=== PATIENT | female | born 2000 | race Caucasian/White ===

== ENCOUNTER 2023-08-03 10:44 | Emergency (ER) | payer OTHER, SELFPAY ==
--- NOTE | ~2023-08-03 | XR_ITS ---
EXAMINATION: XR CHEST 2 VIEW CLINICAL INFORMATION: Cough COMPARISON: None TECHNIQUE: PA and lateral views of the chest obtained. FINDINGS: The lungs are clear. There are no pleural effusions. The cardiomediastinal silhouette is normal. XR/XR chest 2V IMPRESSION: No acute cardiopulmonary disease.
[2023-08-03 11:33] VITALS: BP 127/79; PULSE 79; RESP 18; TEMP 37; O2SAT 98; BMI 38.1
--- NOTE | 2023-08-03 11:33 | ED_ITS ---
HPI - URI/Sore Throat General Chief Complaint: Upper Respiratory Symptoms Stated Complaint: Heavy Chest Cough Time Seen by Provider: 08/03/23 15:15 Source: patient Mode of arrival: ambulatory Limitations: no limitations History of Present Illness HPI Narrative: 22 year old female with no signficant pmhx presents to the ED today for evaluation of dry cough and sore throat x6 days. Admits to chest heaviness on coughing. Admits to fever 4 days ago which has resolved. Has been taking Nyquil and drinking tea without resolution. Admits to testing negative for COVID at home. Denies sick contacts. Denies headache, dizziness, ear pain, sputum production, dysphagia, odynophagia, N/V. Denies chest pain, palpitations, shortness of breath, leg swelling/pain, hemoptysis, recent surgery/Trauma, history of PE or DVT, or OCP use. Denies recent travel or long car rides. Related Data Previous Rx's Medication Instructions Recorded benzocaine 15 mg-menthol 2.6 mg 1 ravindra mucous membrane Q2-4H PRN 08/03/23 lozenges (Cepacol Sore Throat sore throat #16 ea (benzocaine-menthol)) benzonatate 100 mg capsule 100 mg PO BID PRN cough #10 caps 08/03/23 prednisone 20 mg tablet 20 mg PO DAILY 5 days #5 tabs 08/03/23 Allergies Allergy/AdvReac Type Severity Reaction Status Date / Time almond [ALMONDS] Allergy Unknown UNKNOWN Verified 08/03/23 11:36 any kind of nuts Allergy Unknown Unknown Uncoded 08/03/23 11:36 Seasonal Allergy Unknown Unknown Uncoded 08/03/23 11:36 Review of Systems Review of Systems: Constitutional: No fever, chills, fatigue, night sweats, weight changes ENT/Mouth: No ear pain, hearing loss, nasal congestion, sinus pain, rhinorrhea, +sore throat, No odynophagia, No dysphagia Eyes: No eye pain, swelling, redness, vision changes, discharge Cardio: No chest pain, palpitations, ALMANZA, orthopnea, peripheral edema Pulm: No SOB, +cough, No sputum, wheezing, dyspnea, hemoptysis GI: No nausea, vomiting, hematemesis, abdominal pain, diarrhea, constipation, hematochezia, melena : No irregular bleeding, dysuria, frequency, urgency, hesitancy, hematuria, flank pain MSK: No back pain, neck pain, joint pain, myalgias Skin: No lesions, rashes Neuro: No weakness, numbness, paresthesias, LOC, dizziness, headache All other systems reviewed and are negative. [facility] Past Medical History Attestation statement: The following information was validated with the patient. Source: old records reviewed and nursing notes reviewed Social History Social History Advance Directives: No Advance Directives Information Provided: No Physical Exam Vital Signs: Vital Signs: Last Vital Signs Temp 97.8 F 08/03/23 15:19 Pulse 78 08/03/23 15:19 Resp 18 08/03/23 15:19 BP 128/76 08/03/23 15:19 Pulse Ox 98 08/03/23 15:19 O2 Del Method Room Air 08/03/23 15:19 BMI result Body Mass Index 38.1 Vital signs stable, afebrile Const: General: cooperative, healthy appearing, comfortable, no acute distress, alert and awake Orientation/consciousness: patient oriented x3 Limitations: no limitations HEENT: Other: + posterior oropharynx erythematous, no edema. No tonsillar exudates. Uvula midline. Controlling secretions and speaking complete sentences. Head: Yes normal to inspection, Yes normocephalic and Yes atraumatic Ears: hearing grossly normal bilaterally, external ears normal, TM's normal bilaterally, EAC's normal, mastoids normal and no periauricular adenopathy General nose exam: Normal external nose present and No nasal discharge present Face and sinus: Yes normal facial exam and Yes sinuses nontender Eyes: General: appearance normal, both eyes and all related structures Conjunctivae: conjunctivae normal Sclerae: sclerae normal Pupils: Equal, round and reactive pupils present Neck: Neck: Yes normal visual inspection, Yes full ROM, Yes no lymphadenopathy and Yes no meningeal signs Resp: Effort & Inspection: normal respiratory effort and able to speak in complete sentences Auscultation: clear to auscultation bilaterally Cardio: Rate: regular rate Rhythm: regular rhythm GI: Inspection: Yes normal to inspection Palpation (GI): Soft to palpation and nontender Skin: General skin exam: no rashes or lesions noted Neuro: General: patient oriented x3, gait normal and no meningeal signs Cranial nerves: Yes Equal, round and reactive pupils present Extrem: General: Yes normal to inspection Course Course Course Narrative: This is a rapid medical exam. Deferred additional HPI, ROS, PE to primary provider. 22 yo female with no known medical history here with cough, sore throat, chest tightness. Negative covid testing at home. Will obtain testing for flu, covid testing, strep testing and CXR. VSS Reevaluation(s) Reevaluation #1: 1547-- patient has tested negative for COVID, flu, strep. Exam not consistent with mono. Chest x-ray without evidence of pneumonia or bronchitis. Patient receiving dose of Solu-Medrol in the ED. exam may be consistent with a laryngitis. I do not feel as though antibiotics are warranted at this time. Will send home with 5 days of prednisone, Tessalon Perles and Cepacol throat lozenges. Discussed workup results and disposition with patient. Discussed worrisome signs and symptoms and when to return to the ED. all questions answered at this time. Patient is agreeable disposition and stable for discharge. 1610-- I was called to bedside by RN for reaction to solu-medrol administration. Per RN, she was administering IM solumedrol. Patient was initially tolerating the injection however began to feel nauseous, rolled her eyes in the back of her head. this lasted for a few seconds before patient came-to. Per patient, she woke up lying on the exam with the nurse speaking to her. She states that she doesn't like needles however has never lost consciousness during injections. Admits she has not had anything to eat today. Patient now states symptoms have resolved. will give patient crackers and gingerale and re-evaluation. 1710-- On re-evaluation, patient states she is feeling much better after eating. Stable for discharge. Medications Administered Discontinued Medications Generic Name Dose Route Start Last Admin Trade Name Freq PRN Reason Stop Dose Admin Methylprednisolone Sodium Succinate 60 mg 08/03/23 15:35 08/03/23 16:10 Methylprednisolone Sod Succ 125 Mg/2 Ml Vial IM 08/03/23 15:36 60 mg ONCE ONE Administration Medical Decision Making Medical Decision Making MDM Narrative: 22 year old female with no signficant pmhx presents to the ED today for evaluation of dry cough and sore throat x6 days. Vital signs stable, afebrile. Patient is nontoxic-appearing and in no acute distress. Bilateral EACs and TMs WNL. Posterior oropharynx WNL. Lungs clear to auscultation bilaterally. No wheezes. Airway patent. Actively coughing on exam. No calf tenderness or erythema bilaterally. PERC 0. Unlikely pulmonary embolism, DVT. Clinical concern for laryngitis, viral syndrome, bronchitis, pneumonia. Unlikely strep throat, mono, PSYCHOLOGY CLINICIAN, retropharyngeal abscess, epiglottitis, acute respiratory distress, pleural effusion, pneumothorax. Serology and chest x-ray ordered in triage. Plan for review and re-evaluation. Differential Diagnosis Differential Diagnoses: The differential diagnosis associated with the presentation includes as above. Admission/Observation Not indicated Lab Data MDM Lab Attestation statement: I reviewed the patient's lab results. as above Labs: Lab Results 08/03/23 Range/Units 12:22 COVID-19 (OLIVER) Negative (Negative) COVID-19 Clin Com See Note Influenza Type A (SCOTT) Negative (Negative) Influenza Type B (SCOTT) Negative (Negative) Influenza A & B Note See Note S. pyogenes GrpA SCOTT Negative (Negative) Independent Interpretation I performed an independent interpretation of an: Plain X-Ray Interpretation: I have personally reviewed chest x-ray and agree with radiologist's interpretation. Radiology Impression Discussion of test interpretation with radiology: I have reviewed the radio logist's reading. Radiologist Impression: XR chest 2V IMPRESSION: No acute cardiopulmonary disease. External Record Review External record reviewed: Inpatient record Prescription Management I considered prescription management with: Other (prednisone, Tessalon Perles, Cepacol) Social Determinants Patient?s care significantly limited by Social Determinants of Health including: Other Social Determinant of Health Critical Care Time Critical Care Time Critical Care Time: No Discharge Plan Discharge Clinical Impression: Laryngitis Patient Disposition: Home, Self-Care Instructions: Laryngitis (ED) Additional Instructions: You were evaluated in the ED today for cough, chest heaviness and sore throat. You tested negative for COVID, influenza, strep throat. Your physical exam is reassuring and most consistent with laryngitis. Prednisone as a steroid that has been sent to your pharmacy. You received a dose in the ED today so began this medication tomorrow. Take this for 5 days. Tessalon Perles have been sent to your pharmacy to help with cough. Cepacol throat lozenges have been sent to pharmacy to help with sore throat. Please follow-up with your primary care provider as needed. If symptoms persist or worsen, please return to the ED. In the case of an emergency call 911. Prescriptions: New prednisone 20 mg tablet 20 mg PO DAILY 5 Days Qty: 5 0RF benzonatate 100 mg capsule 100 mg PO BID PRN (Reason: cough) Qty: 10 0RF Cepacol Sore Throat (carina-men) 15-2.6 mg lozenge 1 ravindra mucous membrane Q2-4H PRN (Reason: sore throat) Qty: 16 0RF Stand Alone Forms: Work/School Release Interventions: ED Discharge Assessment Last Done: 08/03/23 17:09 Discharge Date/Time: 08/03/23 17:11
[2023-08-03 12:50] LABS: COVID-19 Test Negative (Negative); IDNOW Serial# 08D9AD1C; IDNOW Serial# 152EDE1D
[2023-08-03 12:51] LABS: Strep A Nucleic Acid Negative (Negative)
[2023-08-03 12:52] LABS: IDNOW Serial# 9DB6401D; Influenza A Negative (Negative); Influenza B2 Negative (Negative)
[2023-08-03 15:19] VITALS: BP 128/76; PULSE 78; RESP 18; TEMP 36.6; O2SAT 98
[2023-08-03] MEDS: methylPREDNISolone Sod Succ 125 MG/2 ML VIAL 60 MG IM (16:10)
== END 2023-08-03 17:11 | disposition home or self-care (01) ==
PROVIDERS: Nurse Practitioner Family; Emergency Provider Emergency Medicine; PCP Nurse Practitioner Family
DX: J04.0 Acute laryngitis (principal); R05.9 Cough, unspecified; J02.9 Acute pharyngitis, unspecified; Z11.52 Encounter for screening for COVID-19
CPT/HCPCS: 71046; 87502; 87635; 87651; 96372; 99283; 99284; J2930

== ENCOUNTER 2023-10-01 08:14 | Emergency (ER) | payer OTHER, SELFPAY ==
[2023-10-01 08:52] VITALS: BP 121/79; PULSE 83; RESP 18; TEMP 36.4; O2SAT 95; BMI 37.7
[2023-10-01 09:57] LABS: IDNOW Serial# 08D9AD1C; Strep A Nucleic Acid Negative (Negative)
[2023-10-01 10:25] LABS: Influenza A PCR NEGATIVE (Negative); Influenza B PCR NEGATIVE (Negative); Resp Syncy Virus RNA Qual PCR NEGATIVE (Negative); SARS COV2 PCR INHOUSE NEGATIVE (Negative)
--- NOTE | 2023-10-01 10:33 | ED_ITS ---
HPI - URI/Sore Throat General Chief Complaint: Upper Respiratory Symptoms Stated Complaint: ? Strep Throat Time Seen by Provider: 10/01/23 09:01 Source: patient Mode of arrival: ambulatory Limitations: no limitations History of Present Illness HPI Narrative: patient is a 23-year-old female who presents emergency department for evaluation of sore throat, cough, fatigue. Symptom onset was 2 days ago. Prior URI symptoms over the past 2 months as well. Denies fevers, chills, headache, dizziness, neck pain, neck stiffness, chest pain, shortness of breath, difficulty breathing, nausea, vomiting, abdominal pain, numbness or tingling of the extremities, genitourinary symptoms. Related Data Previous Rx's ?Medication ?Instructions ?Recorded benzocaine 15 mg-menthol 2.6 mg 1 ravindra mucous membrane Q2-4H PRN 08/03/23 lozenges (Cepacol Sore Throat sore throat #16 ea (benzocaine-menthol)) benzonatate 100 mg capsule 100 mg PO BID PRN cough #10 caps 08/03/23 prednisone 20 mg tablet 20 mg PO DAILY 5 days #5 tabs 08/03/23 Allergies Allergy/AdvReac Type Severity Reaction Status Date / Time almond [ALMONDS] Allergy Unknown UNKNOWN Verified 10/01/23 08:55 any kind of nuts Allergy Unknown Unknown Uncoded 08/03/23 11:36 Seasonal Allergy Unknown Unknown Uncoded 08/03/23 11:36 Review of Systems Review of Systems: Yes all other systems are reviewed and are negative PMFSH Past Medical History Attestation statement: The following information was validated with the patient. Source: old records reviewed Social History Social History Advance Directives: No Advance Directives Information Provided: No Physical Exam Vital Signs: Vital Signs: Last Vital Signs Temp 97.6 F 10/01/23 08:52 Pulse 83 10/01/23 08:52 Resp 18 10/01/23 08:52 BP 121/79 10/01/23 08:52 Pulse Ox 95 10/01/23 08:52 O2 Del Method Room Air 10/01/23 08:52 BMI result Body Mass Index 37.7 Appearance: Alert.?Oriented to person, place and time. No acute distress.?Normal affect. Eyes: Pupils equal, round and reactive to light.? ENT: TM normal bilaterally. Pharynx Mildly erythematous, 1+ tonsillar hypertrophy bilaterally. No exudates. No trismus. No drooling. Uvula midline.?? Neck: Normal inspection.? Neck supple.??No cervical adenopathy CVS: Heart sounds normal. Normal heart rate and rhythm.? Pulses normal.?? Respiratory: No respiratory distress.? Lung sounds clear to auscultation bilaterally?? Abdomen: Soft and non-tender. Normoactive bowel sounds. Skin: Skin warm and dry.? Normal skin color.? ? Extremities: No lower extremity edema.? Neuro: Moves all extremities spontaneously. Sensation intact bilaterally. No motor deficits. Ambulates with normal steady gait. Medical Decision Making Medical Decision Making [facility] Narrative: Patient is a 23-year-old female, presenting for evaluation of upper respiratory symptoms. COVID-19 /influenza/ RSV testing negative. Strep a testing negative. Examination is not consistent with peritonsillar retrop haryngeal abscess. At this time history and physical exam not consistent with ACS/PE/pneumonia. Well-appearing, nontoxic, afebrile, no tachycardia or tachypnea/hypoxia. Speaking clear full sentences, ambulatory with steady gait. Discussed conservative treatment including rest, hydration, Tylenol/ibuprofen as needed for fever and body aches, saline nasal spray, humidifier, [id number] cold medication. Advised to follow-up with primary care provider as needed, discussed reasons to return back to the emergency department. All questions were answered. Patient discharged home in stable c ondition. Provided with a return to work/school note. Differential Diagnosis Differential Diagnoses: The differential diagnosis associated with the presentation includes ( See narrative above) Admission/Observation Consideration of admission/observation: Escalation of care including adm ission/observation considered ( see narrative above) Lab Data [facility] Lab Attestation statement: I reviewed the patient's lab results. ( see narrative above) Labs: Lab Results 10/01/23 Range/Units 09:42 Influenza Type A (PCR) NEGATIVE (Negative) Influenza Type B (PCR) NEGATIVE (Negative) RSV RNA Qual (PCR) NEGATIVE (Negative) SARS-CoV-2 RNA (RT-PCR) NEGATIVE (Negative) S. pyogenes GrpA SCOTT Negative (Negative) External Record Review External record reviewed: Outpatient record Prescription Management I considered prescription management with: Pain Medication ( acetaminophen/ibuprofen) and Antibiotic ( No indication for antibiotics at this time) Discharge Plan Discharge Clinical Impression: Pharyngitis Patient Disposition: Home, Self-Care Instructions: Pharyngitis (ED) Additional Instructions: Be sure to rest, stay well hydrated drinking plenty of fluids, eat small frequent meals. Tylenol/ibuprofen can be used as needed for fever/pain. Ijyw-yaq-[id number] cold medications may be helpful as well for symptoms. throat lozenges and Chloraseptic throat spray. Saline nasal spray, humidifier may be helpful for nasal congestion. You may return to the emergency department with any new or worsening symptoms or concerns. Follow-up with your primary care provider as needed. S Prescriptions: No Action prednisone 20 mg tablet 20 mg PO DAILY 5 Days Qty: 5 0RF benzonatate 100 mg capsule 100 mg PO BID PRN (Reason: cough) Qty: 10 0RF Cepacol Sore Throat (carina-men) 15-2.6 mg lozenge 1 ravindra mucous membrane Q2-4H PRN (Reason: sore throat) Qty: 16 0RF Referrals: Sanford Rodriguez NP [Primary Care Provider] - Stand Alone Forms: Work/School Release Print Language: Micronesian
[2023-10-01 11:05] VITALS: BP 110/71; PULSE 70; RESP 16; TEMP 36.2; O2SAT 97
== END 2023-10-01 11:06 | disposition home or self-care (01) ==
PROVIDERS: Emergency Provider Emergency Medicine; PCP Nurse Practitioner Family
DX: J02.9 Acute pharyngitis, unspecified (principal); R05.9 Cough, unspecified; Z11.52 Encounter for screening for COVID-19
CPT/HCPCS: 0241U; 87651; 99282; 99283

== ENCOUNTER 2024-06-23 09:29 | Emergency (ER) | payer OTHER, SELFPAY ==
--- NOTE | ~2024-06-23 | CT_ITS ---
EXAMINATION: CT ORBIT WITH CONTRAST CLINICAL INFORMATION: Right orbit pain. COMPARISON: None available. TECHNIQUE: Contiguous axial CT images of the orbits were obtained following the IV administration of 80 mL Omnipaque 350 contrast. Sagittal and coronal reformats were provided and reviewed. This CT examination was performed using dose optimization techniques as appropriate, variously including the following: *Automated exposure control *Adjustment of mA and/or kV according to patient size (this includes techniques or standardized protocols for targeted exams where dose is matched to indication/reason for exam; i.e. extremities or head) *Use of iterative reconstruction technique DLP: 138 mGy-cm FINDINGS: No fracture. Specific, the orbital wise and nasal bones are intact. No concerning lytic or blastic osseous lesion. The wise of the paranasal sinuses are intact.No sinus opacification or air fluid levels are identified.The nasal bones are intact. The visualized portion of the mandible and bilateral TMJ's are intact. The zygomatic arches are normal bilaterally. The orbits are unremarkable. There is no evidence of an orbital floor fracture or orbital emphysema. No preorbital or retro-orbital mass or fluid collection. No abnormal soft tissue enhancement. The globes are intact. The visualized pterygoids are intact. The osteomeatal complexes are normal. The soft tissues are unremarkable. CT/CT orbit BI w IV con IMPRESSION: Unremarkable examination. Electronically signed by: Vishnu Patel MD 06/23/2024 03:45 PM [facility]
[2024-06-23 09:52] VITALS: BP 126/77; PULSE 74; RESP 18; TEMP 36.5; O2SAT 97; BMI 37.6
--- NOTE | 2024-06-23 11:55 | ED_ITS ---
HPI - General Adult General Chief complaint: Eye Problems Stated complaint: R eye burning/irritation Time Seen by Provider: 06/23/24 13:23 Source: patient and RN notes reviewed Mode of arrival: ambulatory Limitations: no limitations History of Present Illness ED Provider: Helen Eubanks PA-C HPI narrative: This is a 23-year-old female, with no known medical problems, who presents emergency department with complaints of ongoing right eye concerns. Patient states that yesterday she awoke with burning, itching in her right eye since yesterday. She states that she went to her primary care office and was prescribed polymyxin trimethoprim eyedrops, which he has been using. She states that she awoke in her eye continues to be photophobic, and states that she feels as though she has pain with extraocular movements. She denies any fevers or chills. No changes in vision. Reports she previously had drainage to her eye however this has since resolved. Denies any eye trauma. History of similar symptoms. No other complaints or concerns at this time. MD complaint: Right eye pain Related Data Previous Rx's ?Medication ?Instructions ?Recorded benzocaine 15 mg-menthol 2.6 mg 1 ravindra mucous membrane Q2-4H PRN 08/03/23 lozenges (Cepacol Sore Throat sore throat #16 ea (benzocaine-menthol)) benzonatate 100 mg capsule 100 mg PO BID PRN cough #10 caps 08/03/23 prednisone 20 mg tablet 20 mg PO DAILY 5 days #5 tabs 08/03/23 ofloxacin 0.3 % eye drops See Rx Instructions ophthalmic 06/23/24 (eye) .COMPLEX #10 mL Allergies Allergy/AdvReac Type Severity Reaction Status Date / Time almond [ALMONDS] Allergy Unknown UNKNOWN Verified 06/23/24 09:53 any kind of nuts Allergy Unknown Unknown Uncoded 08/03/23 11:36 Seasonal Allergy Unknown Unknown Uncoded 08/03/23 11:36 Review of Systems 2 Review of Systems: Yes all other systems are reviewed and are negative Constitutional: Constitutional: Reports as per [facility] Social History Social History Advance Directives: No Advance Directives Information Provided: Yes Physical Exam ED Vital Signs: Vital Signs - 24 hr 06/23/24 15:22 06/23/24 18:00 Temperature 97.3 F 97.3 F Pulse Rate 60 60 Respiratory Rate 18 18 Blood Pressure 111/65 111/65 Pulse Oximetry 98 98 Oxygen Delivery Method Room Air Room Air BMI result Body Mass Index 37.6 Const General: cooperative, comfortable and no acute distress Orientation/consciousness: patient oriented x3 Limitations: no limitations HENMT Head: Yes normal to inspection, Yes normocephalic and Yes atraumatic Ears: hearing grossly normal bilaterally General nose exam: Normal external nose present Face and sinus: Yes normal facial exam Mouth: Normal oral and palatal mucosa present, oropharynx normal and moist mucous membranes Throat: Yes posterior oropharynx normal Eyes Other: Right eye with no conjunctival injection, no drainage. No periorbital swelling. Full EOM of the eye, however pt reports pain with lateral movements. TTP in the infraobital region without any erythema, edema or warmth. Upper lid and lower lid everted no FB identified. IOP in the right eye: 15mmHg, IOP on the left: 18mmHg. Subtle fluoroscein uptake noted at the 4 o'clock position. nalini sign negative. General: appearance normal, both eyes and all related structures Eyelids: Yes eyelids normal Conjunctivae: conjunctivae normal Sclerae: sclerae normal Pupils: Equal, round and reactive pupils present EOM: EOMs intact bilaterally Neck Neck: Yes normal visual inspection, Yes full ROM and Yes no lymphadenopathy Lymphatic: no lymphadenopathy noted Chest Chest palpation & inspection: normal inspection of the chest Resp Effort & Inspection: normal respiratory effort and able to speak in complete sentences Auscultation: clear to auscultation bilaterally, no crackles, no rales, no rhonchi and no wheezes Cardio Rate: regular rate Rhythm: regular rhythm Heart sounds: S1 normal heart sound present and S2 normal heart sound present GI Inspection: Yes normal to inspection Skin General skin exam: no rashes or lesions noted Trauma: no lacerations or abrasions Wounds: no wounds Neuro General: patient oriented x3 and moves all extremities Cranial nerves: Yes Equal, round and reactive pupils present Extrem General: Yes normal to inspection Right upper extremity: normal to inspection Left upper extremity: normal to inspection Right lower extremity: normal to inspection Left lower extremity: normal to inspection Course Course Course Narrative: RME performed by Aura Villarreal PA-C. Patient is a 23 year old assigned female at presenting to the emergency department with right eye pain. Patient states that 2 days ago she woke up with right eye pain. Patient states that she is on eye drops but is having pain with eye movement and light. Detailed physical exam and review of systems are deferred to the primary special educator. Labs ordered. Patient placed back in the waiting room pending room availability and results. Reevaluation(s) Reevaluation #1: CT orbit was normal. Labs are WNL. No leukocytosis and normal inflammatory markers. She does have pain with extraoccular movements, therefore, patient evaluated by Dr. Patel who examined patient. There is subtle fluoroscein uptake at the 4 o'clock position. Recommends switching to ofloaxin drops and f/u with Dr. Garduno next week. Pt givenn strict returnn precautions. Stable for d.c. Medications Administered Discontinued Medications Generic Name Dose Route Start Last Admin Trade Name Freq PRN Reason Stop Dose Admin Fluorescein Sodium 1 strip 06/23/24 13:36 06/23/24 16:37 Fluorescein Sodium Strip EYE-RIGHT 06/23/24 13:37 1 strip ONCE ONE Administration Iohexol 100 ml 06/23/24 14:59 06/23/24 15:00 Iohexol 350 Mg/Ml 100 Ml Infus..Btl IV 06/23/24 15:00 80 ml ONCE ONE Administration Ondansetron HCl 4 mg 06/23/24 13:36 06/23/24 14:13 Ondansetron Odt 4 Mg Tab.Rapdis TRANSLINGU 06/23/24 13:37 4 mg ONCE ONE Administration Tetracaine HCl 1 drop 06/23/24 13:36 06/23/24 16:37 Tetracaine Hcl/Pf 0.5% Oph Liz 4 Ml Drops EYE-RIGHT 06/23/24 13:37 1 drop ONCE ONE Administration Tetracaine HCl 1 drop 06/23/24 17:14 06/23/24 17:56 Tetracaine Hcl/Pf 0.5% Oph Liz 4 Ml Drops EYE-RIGHT 06/23/24 17:15 1 drop ONCE ONE Administration Medical Decision Making Medical Decision Making MDM Narrative: 23 y/o F who presents to the ER with complaints of right eye pain since yesterday. On arrival, VSS. Pt stable, resting comfortably, however wearing sunglasses due to +photophobia. She was started on abx eye drops to treat for conjunctivitis yesterday which she has been using which aleviated the drainage, but now having pain with EOM. Given pain with EOM, orbital cellulitis is considered. CT orbits ordered to r/o orbital cellulitis. Visual acuity intact. Plan: Labs, CT head, eye examination Differential Diagnosis Differential Diagnoses: The differential diagnosis associated with the presentation includes oorbital cellulitis, conjunctivitis, iritis, keratitis, Admission/Observation Consideration of admission/observation: Escalation of care including admission/observation considered Lab Data MDM Lab Attestation statement: I reviewed the patient's lab results. No leukocytosis, stable H&H, ESR and CRP within normal range. chemistry without electrolyte deranagement. HCG quant negative. 06/23/24 12:06/23/24 12:31 Labs: Lab Results 06/23/24 Range/Units 12: WBC 7.7 (4.8-10.8) X10*3/uL RBC 4.93 (4.20-5.50) X10*6/uL Hgb 14.0 (12.0-16.0) g/dl Hct 42.5 (37.0-47.0) % MCV 86.2 (80.0-98.0) fL MCH 28.4 (27.0-33.0) pg MCHC 32.9 (31.0-35.0) g/dl RDW 13.5 (11.0-16.0) % Plt Count 292 (160-400) X10*3/uL MPV 9.6 (9.4-12.3) fL Immature Gran % (Auto) 0.1 (0.0-0.4) % Neut % (Auto) 53.0 (45-73) % Lymph % (Auto) 34.8 (20-40) % [place] % (Auto) 7.9 (2-11) % Eos % (Auto) 3.2 (0-4) % Baso % (Auto) 1.0 (0-2) % Lymph # (Auto) 2.7 (1.2-4.9) X10*3/uL [place] # (Auto) 0.6 (0.1-1.2) X10*3/uL Eos # (Auto) 0.3 (0.0-0.4) X10*3/uL Baso # (Auto) 0.1 (0.0-0.2) X10*3/uL Abs Immat Gran (auto) 0.01 (0.00-0.03) X10*3/uL Absolute Neuts (auto) 4.1 (2.0-8.3) x10*3/uL Absolute Nucleated RBC 0.000 (0.0-0.012) X10*3/uL Nucleated RBC % (auto) 0.0 (0.0-0.2) /100WBC ESR 13 (0-20) MM/HR Sodium 140 (135-145) mmol/L Potassium 4.0 (3.3-5.1) mmol/L Chloride 105 (96-108) mmol/L Carbon Dioxide 28 (22-29) mmol/L Anion Gap 11 L (12-20) BUN 12 (9-16) mg/dL Creatinine 0.68 (0.5-1.4) mg/dL Estim Creat Clear Calc 134.4 Estimated GFR > 60 Random Glucose 91 (60-115) mg/dL Calcium 10.0 (8.4-10.2) mg/dL Magnesium 2.0 (1.6-2.6) mg/dL Total Bilirubin 0.4 (0.0-1.0) mg/dL AST 21 (5-31) U/L ALT 19 (0-31) U/L Alkaline Phosphatase 78 (39-117) U/L C-Reactive Protein 0.50 (< or = 0.50) mg/dL Total Protein 7.8 (6.5-8.0) g/dL Albumin 4.2 (3.5-5.0) g/dL Beta HCG, Quant < 2 mIU/mL Radiology Impression Discussion of test interpretation with radiology: I have reviewed the radiologist's reading. Radiologist Impression: Report Number: [id number]: Total DLP = 138.00 mGy-cm EXAMINATION: CT ORBIT WITH CONTRAST CLINICAL INFORMATION: Right orbit pain. COMPARISON: None available. TECHNIQUE: Contiguous axial CT images of the orbits were obtained following the IV administration of 80 mL Omnipaque 350 contrast. Sagittal and coronal reformats were provided and reviewed. This CT examination was performed using dose optimization techniques as appropriate, variously including the following: *Automated exposure control *Adjustment of mA and/or kV according to patient size (this includes techniques or standardized protocols for targeted exams where dose is matched to indication/reason for exam; i.e. extremities or head) *Use of iterative reconstruction technique DLP: 138 mGy-cm FINDINGS: No fracture. Specific, the orbital wise and nasal bones are intact. No concerning lytic or blastic osseous lesion. The wise of the paranasal sinuses are intact.No sinus opacification or air fluid levels are identified.The nasal bones are intact. The visualized portion of the mandible and bilateral TMJ's are intact. The zygomatic arches are normal bilaterally. The orbits are unremarkable. There is no evidence of an orbital floor fracture or orbital emphysema. No preorbital or retro-orbital mass or fluid collection. No abnormal soft tissue enhancement. The globes are intact. The visualized pterygoids are intact. The osteomeatal complexes are normal. The soft tissues are unremarkable. CT/CT orbit BI w IV con IMPRESSION: Unremarkable examination. Electronically signed by: Vishnu Patel MD 06/23/2024 03:45 PM [facility] [place] Dictated By: Vishnu Patel MD Discharge Plan Discharge Clinical Impression: Keratitis Patient Disposition: Home, Self-Care Instructions: Keratitis (ED) Additional Instructions: You were seen in the emergency department due to right eye pain. Your right eye does appear to have signs of inflammation. Please use prescribed antibiotic eyedrops, discontinue eyedrops that you already prescribed. Follow-up with the airplane dispatch clerk, Dr. Garduno. Call on Wednesday to make an appointment. If any new or worsening symptoms occur including but not limited to worsening eye pain, changes in vision, please seek emergent care. Prescriptions: New ofloxacin 0.3 % drops See Rx Instructions .ROUTE .COMPLEX Qty: 10 0RF Rx Instructions: put 1-2 drps into affected eye(s) every 2-4 h x 2 days, then 1-2 drps 4 times/day days 3-7 No Action prednisone 20 mg tablet 20 mg PO DAILY 5 Days Qty: 5 0RF benzonatate 100 mg capsule 100 mg PO BID PRN (Reason: cough) Qty: 10 0RF Cepacol Sore Throat (carina-men) 15-2.6 mg lozenge 1 ravindra mucous membrane Q2-4H PRN (Reason: sore throat) Qty: 16 0RF Interventions: ED Discharge Assessment Last Done: 06/23/24 18:00 Discharge Date/Time: 06/23/24 18:00 Print Language: Kyrgyz
[2024-06-23 12:37] LABS: MANUAL DIFF FLAG NO
[2024-06-23 12:40] LABS: Basophils Absolute Auto 0.1 X10*3/uL (0.0-0.2); Eosinophils Absolute Auto 0.3 X10*3/uL (0.0-0.4); Eosinophils Percent Auto 3.2 % (0-4); Hematocrit 42.5 % (37.0-47.0); Imm Gran Abs Auto 0.01 X10*3/uL (0.00-0.03); Imm Gran Pct Auto 0.1 % (0.0-0.4); Lymphocytes Absolute Auto 2.7 X10*3/uL (1.2-4.9); Lymphocytes Percent Auto 34.8 % (20-40); Mean Corpuscular HGB Conc 32.9 g/dl (31.0-35.0); Mean Corpuscular Hemoglobin 28.4 pg (27.0-33.0); Mean Corpuscular Volume 86.2 fL (80.0-98.0); Mean Platelet Volume 9.6 fL (9.4-12.3); Monocytes Absolute Auto 0.6 X10*3/uL (0.1-1.2); Monocytes Percent Auto 7.9 % (2-11); Neutrophils Absolute Auto 4.1 x10*3/uL (2.0-8.3); Platelet Count 292 X10*3/uL (160-400); Red Blood Count 4.93 X10*6/uL (4.20-5.50); Red Cell Distribution Width 13.5 % (11.0-16.0); White Blood Count 7.7 X10*3/uL (4.8-10.8)
[2024-06-23 12:56] LABS: Alanine Aminotransferase 19 U/L (0-31); Albumin Level 4.2 g/dL (3.5-5.0); Alkaline Phosphatase 78 U/L (39-117); Anion Gap 11 (12-20); Aspartate Amino Transferase 21 U/L (5-31); Bilirubin Total 0.4 mg/dL (0.0-1.0); Blood Urea Nitrogen 12 mg/dL (9-16); Carbon Dioxide 28 mmol/L (22-29); Chloride 105 mmol/L (96-108); Creatinine Clr Calc Pharmacy 134.4; Estimated Glomerular Filt Rate > 60; Glucose Random 91 mg/dL (60-115); Sodium 140 mmol/L (135-145); Total Protein 7.8 g/dL (6.5-8.0)
[2024-06-23 13:03] LABS: HCG Quantitative < 2 mIU/mL
[2024-06-23 13:16] LABS: Erythrocyte Sedimentation Rate 13 MM/HR (0-20)
[2024-06-23] MEDS: Ondansetron ODT 4 MG TAB.RAPDIS TRANSLINGU (14:13)
[2024-06-23] MEDS: iohexoL 350 MG/ML 100 ML INFUS..BTL IV (15:00)
[2024-06-23 15:22] VITALS: BP 111/65; PULSE 60; RESP 18; TEMP 36.3; O2SAT 98
[2024-06-23] MEDS: Tetracaine HCl/PF 0.5% Oph Sol 4 ML DROPS 1 DROP EYE-RIGHT ×2 (16:37→17:56)
[2024-06-23] MEDS: Fluorescein Sodium STRIP 1 STRIP EYE-RIGHT (16:37)
[2024-06-23 18:00] VITALS: BP 111/65; PULSE 60; RESP 18; TEMP 36.3; O2SAT 98
== END 2024-06-23 18:00 | disposition home or self-care (01) ==
PROVIDERS: Physician Assistant Medical; Emergency Provider Emergency Medicine; PCP Nurse Practitioner Family
DX: H57.11 Ocular pain, right eye (principal); H16.9 Unspecified keratitis; Z79.899 Other long term (current) drug therapy; Z83.438 Family history of other disorder of lipoprotein metabolism and other lipidemia
CPT/HCPCS: 36415; 70481; 80053; 83735; 84702; 85025; 85652; 86140; 99283; 99284; Q9967

== ENCOUNTER 2025-06-07 09:11 | Emergency (ER) | payer OTHER, SELFPAY ==
--- NOTE | ~2025-06-07 | CT_ITS ---
EXAMINATION: CT HEAD WITHOUT CONTRAST CLINICAL INFORMATION: HEAD INJURY AT WORK COMPARISON: None available. TECHNIQUE: Contiguous axial imaging was performed from the skull base to vertex without intravenous administration of contrast. This CT examination was performed using dose optimization techniques as appropriate, variously including the following: *Automated exposure control *Adjustment of mA and/or kV according to patient size (this includes techniques or standardized protocols for targeted exams where dose is matched to indication/reason for exam; i.e. extremities or head) *Use of iterative reconstruction technique DLP: 588 mGy-cm FINDINGS: No acute cortical disruption within the bony calvarium or the skull base. No acute intracranial hemorrhage, midline shift, hydrocephalus or herniation. Jack-white matter differentiation is normal. Posterior cranial fossa contents demonstrated no acute hemorrhage or mass effect. Normal position of the cerebellar tonsils. Sellar/suprasellar region demonstrated no gross masses. No air-fluid levels in the paranasal sinuses. Tympanic cavities and mastoid cells are aerated. CT/CT head/brain wo IV con IMPRESSION: No acute fracture, bony calvarium. No acute intracranial hemorrhage. Electronically signed by: Seamus Ambrosio MD 06/07/2025 11:39 AM EST
[2025-06-07 09:25] VITALS: BP 128/76; PULSE 76; RESP 16; TEMP 36.6; O2SAT 98; BMI 37.3
--- NOTE | 2025-06-07 10:16 | ED_ITS ---
HPI - General Adult General Chief complaint: Head Injury Stated complaint: head inj at work Time Seen by Provider: 06/07/25 10:11 Source: patient and family (patient's father) Mode of arrival: ambulatory Limitations: no limitations History of Present Illness ED Provider: Aura Villarreal PA-C HPI narrative: Patient is a 24 year old assigned female at with no reported medical history presenting to the emergency department today with a headache and nausea. Patient states that she works at a [employer] and yesterday, she hit the top of her head on a vault door. Patient states that she did not lose consciousness. Patient states that she is having nausea and headache today. Patient denies any other complaints at this time. Relieving factors: none Related Data Previous Rx's ?Medication ?Instructions ?Recorded benzocaine 15 mg-menthol 2.6 mg 1 ravindra mucous membrane Q2-4H PRN 08/03/23 lozenges (Cepacol Sore Throat sore throat #16 ea (benzocaine-menthol)) benzonatate 100 mg capsule 100 mg PO BID PRN cough #10 caps 08/03/23 prednisone 20 mg tablet 20 mg PO DAILY 5 days #5 tab s 08/03/23 ofloxacin 0.3 % eye drops See Rx Instructions ophthalm ic 06/23/24 (eye) .COMPLEX #10 mL ondansetron 4 mg disintegrating 4 mg PO Q8H 3 days #9 tabs 06/07/25 tablet Allergies Allergy/AdvReac Type Severity Reaction Status Date / Time almond (ALMONDS) Allergy Unknown UNKNOWN Verified 06/07/25 09:29 any kind of nuts Allergy Unknown Unknown Uncoded 06/07/25 09:29 Seasonal Allergy Unknown Unknown Uncoded 06/07/25 09:29 Review of Systems Constitutional: Constitutional: Reports as per HPI Eyes: Eyes: Reports as per HPI ENT: Reports as per HPI Cardiovascular: Cardiovascular: Reports as per HPI Respiratory: Respiratory: Reports as per HPI Gastrointestinal: Gastrointestinal: Reports as per HPI Genitourinary: Genitourinary: Reports as per HPI Musculoskeletal: Musculoskeletal: Reports as per HPI Integumentary/Breasts: Skin/Breast: Reports as per HPI Neurologic: Reports as per HPI Psychiatric: Psychiatric: Reports as per HPI Endocrine: Endocrine: Reports as per HPI Hematologic/Lymphatic: Hematologic/Lymphatic: Reports as per HPI Allergic/Immunologic: Allergic/Immunologic: Reports as per HPI PMFSH Past Medical History Attestation statement: The following information was validated with the patient. (patient's father validated all information) Source: old records reviewed, obtained from family (patient's father provided additional history and confirmed the history provided by the patient.) and nursing notes reviewed Physical Exam ED Vital Signs: Vital Signs - 24 hr 06/07/25 09:25 06/07/25 12:57 Temperature 98 F 98 F Pulse Rate 76 76 Respiratory Rate 16 16 Blood Pressure 128/76 128/76 Pulse Oximetry 98 98 Oxygen Delivery Method Room Air Room Air BMI result Body Mass Index 37.3 Const General: cooperative, no acute distress, alert and awake Nutritional Appearance: well nourished Orientation/consciousness: patient oriented x3 HENMT Head: Yes normal to inspection and Yes atraumatic Ears: hearing grossly normal bilaterally and external ears normal General nose exam: Normal external nose present, no nasal discharge noted and no epistaxis Face and sinus: Yes normal facial exam, No abrasion and No laceration Mouth: Normal oral and palatal mucosa present, no drooling and no muffled voice Eyes General: appearance normal, both eyes and all related structures Periorbital: periorbital findings normal Eyelids: Yes eyelids normal Conjunctivae: conjunctivae normal Pupils: Equal, round and reactive pupils present EOM: EOMs intact bilaterally Neck Neck: Yes normal visual inspection and Yes full ROM Resp Effort & Inspection: normal respiratory effort and able to speak in complete sentences Neuro General: patient oriented x3, moves all extremities and CN's II-XI intact bilaterally Cranial nerves: Yes Equal, round and reactive pupils present Cognition (Neuro): normal cognition Extrem General: Yes normal to inspection, Yes full ROM and Yes capillary refill normal Psych Appearance: grossly normal Mental Status: mental status grossly normal Affect: normal affect Attitude: cooperative Thought process: Normal thought process present Thought content: Normal thought content present Insight: Good insight present (Psych) Medications Administered Discontinued Medications Generic Name Dose Route Start Last Admin Trade Name Freq PRN Reason Stop Dose Admin Ondansetron HCl 4 mg 06/07/25 12:21 06/07/25 12:29 Ondansetron Odt 4 Mg Tab.Rapdis TRANSLINGU 06/07/25 12:22 4 mg ONCE ONE Administration Medical Decision Making Medical Decision Making MDM Narrative: Patient is a 24 year old assigned female at with no reported medical history presenting to the emergency department today with a headache and nausea. Patient's physical exam was as noted in the physical exam portion of this note. Patient's CT head showed no acute process. Patient's clinical presentation is most consistent with a concussion / closed head injury. I explained my physical exam findings as well as all test results to the patient and the patient's father. I answered all questions asked by the patient and the patient's father. I stressed the importance of the patient taking her medication as directed (either prescribed or as the over the counter packaging recommends). I stressed the importance of the patient following up with her primary care provider. I stressed the importance of the patient returning to the emergency department immediately if her symptoms were to worsen or if she were to develop any dizziness, shortness of breath, difficulty breathing, chest pain, blurry vision, loss of vision, nausea, vomiting, abdominal pain, fever, chills, back pain, or any other complaints. Patient verbalized agreement and understanding with this treatment plan and discharge. Differential Diagnosis Differential Diagnoses: The differential diagnosis associated with the presentation includes Concussion Closed head injury Admission/Observation Consideration of admission/observation: Escalation of care including admission/observation considered Patient would have been admitted to the hospital had her work up had any findings where hospital admission was appropriate and her clinical presentation warranted hospital admission. Independent Interpretation I performed an independent interpretation of an: CT Scan Interpretation: My interpretation is in agreement with the radiologist's impression of this imaging study as written below. Report Number: [id number]: Total DLP = 588.00 mGy-cm Reason for Exam: HEAD INJURY AT WORK EXAMINATION: CT HEAD WITHOUT CONTRAST CLINICAL INFORMATION: HEAD INJURY AT WORK COMPARISON: None available. TECHNIQUE: Contiguous axial imaging was performed from the skull base to vertex without intravenous administration of contrast. This CT examination was performed using dose optimization techniques as appropriate, variously including the following: *Automated exposure control *Adjustment of mA and/or kV according to patient size (this includes techniques or standardized protocols for targeted exams where dose is matched to indication/reason for exam; i.e. extremities or head) *Use of iterative reconstruction technique DLP: 588 mGy-cm FINDINGS: No acute cortical disruption within the bony calvarium or the skull base. No acute intracranial hemorrhage, midline shift, hydrocephalus or herniation. Jack-white matter differentiation is normal. Posterior cranial fossa contents demonstrated no acute hemorrhage or mass effect. Normal position of the cerebellar tonsils. Sellar/suprasellar region demonstrated no gross masses. No air-fluid levels in the paranasal sinuses. Tympanic cavities and mastoid cells are aerated. CT/CT head/brain wo IV con IMPRESSION: No acute fracture, bony calvarium. No acute intracranial hemorrhage. Electronically signed by: Seamus Ambrosio MD 06/07/2025 11:39 AM [facility] Dictated By: Seamus Carroll MD Signed By: Electronically signed by Seamus Kauffman MD 06/07/25 1139 Radiology Impression Discussion of test interpretation with radiology: I have reviewed the radiologist's reading. Independent Historian Clinical information obtained from an independent historian. History obtained from or confirmed by: Parent (patient's father provided additional history and confirmed the history provided by the patient.) Discharge Plan Discharge Clinical Impression: Closed head injury, Concussion without loss of consciousness Patient Disposition: Home, Self-Care Instructions: Concussion (ED), Head Injury (DC) Additional Instructions: Your CT head showed no evidence of acute bleed or fracture. IF you are prescribed home medications and/or you are taking over the counter medications at home - it is very important you continue to do so as prescribed / directed unless told otherwise by a healthcare provider. Follow up with your primary care provider. Do your best to stay well hydrated and rest. Return to the emergency department immediately if your symptoms worsen or if you develop any numbness, tingling, dizziness, shortness of breath, difficulty breathing, chest pain, blurry vision, loss of vision, nausea, vomiting, abdominal pain, fever, chills, back pain, or any other complaints. Please see the information below about our Patient Portal. If you are not yet enrolled in the [facility] Patient Portal, you will receive an enrollment email invitation following your visit to any [facility] care setting. You may also self-enroll in the Patient Portal by visiting our website: [email or web address] The following information is required to access the Patient Portal: - Your [facility] Medical Record Number - Your personal home email address (must match what is in your electronic medical record, Registration staff can assist with this) - Name - Date of Capabilities of the Patient Portal: - Message some providers - View upcoming appointments - Access your health summary, medical history, and visit history - View current conditions and allergies - View procedure and lab results - View your medications, including guidelines, side effects, and precautions - Complete pre-appointment questionnaires requested by your provider - Ready summary reports of your office visits and procedures To access the Patient Portal Mobile [employer], follow these directions: - Search [facility] in the [employer] Store or [employer] Store - Download the [employer] - Search for [facility] - Enter your login/password Prescriptions: New ondansetron 4 mg tablet,disintegrating 4 mg PO Q8H 3 Days Qty: 9 0RF No Action ofloxacin 0.3 % drops See Rx Instructions .ROUTE .COMPLEX Qty: 10 0RF Rx Instructions: put 1-2 drps into affected eye(s) every 2-4 h x 2 days, then 1-2 drps 4 times/day days 3-7 prednisone 20 mg tablet 20 mg PO DAILY 5 Days Qty: 5 0RF benzonatate 100 mg capsule 100 mg PO BID PRN (Reason: cough) Qty: 10 0RF Cepacol Sore Throat (carina-men) 15-2.6 mg lozenge 1 ravindra mucous membrane Q2-4H PRN (Reason: sore throat) Qty: 16 0RF Referrals: Sanford Rodriguez NP [Primary Care Provider, Medical] Stand Alone Forms: Work/School Release Interventions: ED Discharge Assessment Last Done: 06/07/25 12:57 Discharge Date/Time: 06/07/25 12:57 Print Language: Tamazight
[2025-06-07 12:57] VITALS: BP 128/76; PULSE 76; RESP 16; TEMP 36.6; O2SAT 98
== END 2025-06-07 12:57 | disposition home or self-care (01) ==
PROVIDERS: Emergency Provider Emergency Medicine; PCP Nurse Practitioner Family
DX: S06.0X0A Concussion without loss of consciousness, initial encounter (principal); R51.9 Headache, unspecified; R11.0 Nausea; Y29.XXXA Contact with blunt object, undetermined intent, initial encounter; Y93.9 Activity, unspecified; Y92.9 Unspecified place or not applicable; Y99.0 Civilian activity done for income or pay
CPT/HCPCS: 70450; 99282; 99284

== ENCOUNTER → 2025-06-07 10:49 | Outpatient (BNV) | payer OTHER, SELFPAY | PROVIDERS: PCP Nurse Practitioner Family; Visit Provider Radiology Diagnostic Radiology | DX: S09.90XA Unspecified injury of head, initial encounter (principal); Y99.0 Civilian activity done for income or pay; Z04.3 Encounter for examination and observation following other accident | CPT/HCPCS: 70450 ==